=== PATIENT | male | born 1975 | race Caucasian/White ===

== ENCOUNTER 2020-09-12 07:59 | Day surgery (SDC) | payer BC ==
[2020-09-12] MEDS ORDERED: Propofol 200 MG/20 ML SDV IV ONE (08:00)
[2020-09-12] MEDS ORDERED: Midazolam 1 MG/ML 2 ML SDV IV ONE (08:00)
[2020-09-12] MEDS ORDERED: Sodium Chloride 0.9% 10 ML Syringe FLUSH PRN (08:00)
[2020-09-12] MEDS ORDERED: Lactated Ringers 1,000 ML IV SCH (08:00)
--- NOTE | 2020-09-12 09:48 | PCM.OPNOTE ---
- General Post-Op/Procedure Note Date of Surgery/Procedure: 09/12/20 Operative Procedure(s): c scope with biopsy cold forceps with intubation of terminal ileum. Findings: normal appearing terminal ileum normal appearing colon Pre Op Diagnosis: hx of diarrhea and rectal pain Post-Op Diagnosis: normal appearing terminal ileum. normal appearing colon Anesthesia Technique: MAC Primary Surgeon: Chris Stevens Anesthesia Provider: Trupti Tran Pathology: colon and terminal ileum. random biopsy Complications: None Condition: Good Free Text/Narrative:: see dictation #[id number]
--- NOTE | 2020-09-12 10:39 | OR ---
DATE OF OPERATION: 09/12/2020 SURGEON: Chris Stevens MD PROCEDURE PERFORMED: Colonoscopy with intubation of the terminal ileum with random cold forceps biopsies. PREOPERATIVE DIAGNOSIS: History of diarrhea which is a change in his bowel habits as well as rectal discomfort. POSTOPERATIVE DIAGNOSIS: Normal terminal ileum and normal colon. INDICATIONS FOR PROCEDURE: This is a 45-year-old white male who was referred with the complaints of some diarrhea which had been noted. In addition, he also noted some rectal discomfort. He was offered and accepted a colonoscopy. DESCRIPTION OF PROCEDURE: After an excellent IV sedation was administered, digital rectal exam was performed. No marked abnormality was noted. Prostate exam was unremarkable. Flexible colonoscope was inserted and advanced to the cecum. The terminal ileum was then successfully intubated and the scope was advanced approximately 5 cm. The following findings were noted: In the terminal ileum, no marked abnormality was noted, random biopsies were taken due to his complaint of diarrhea. Ascending colon and cecum were unremarkable, random biopsies taken. Transverse colon, unremarkable, random biopsies were taken. Descending colon, unremarkable, random biopsies were taken. Sigmoid and rectum, unremarkable, random biopsies were taken. The colon was deflated as the scope was removed. Patient tolerated the procedure well. Results will be sent to the patient via letter. /[id number] /MODL
== END 2020-09-12 10:40 | disposition home or self-care (01) ==
LOC: FB.SDS 07:59
PROVIDERS: ATTEND Surgery
DX: R19.4 Change in bowel habit (principal); Z98.890 Other specified postprocedural states
CPT/HCPCS: 00811; 45380; 88305; J2250; J2704; J7120; 00812-QZ

== ENCOUNTER 2024-06-20 17:12 | Emergency (ER) | payer BC ==
[2024-06-20] MEDS ORDERED: Lidocaine 1% 5 ML VIAL INFILT ONE (17:13)
[2024-06-20] MEDS: Bacitracin Oint 1 GM U/D Packet TOP ONE (17:40)
[2024-06-20] MEDS: Diphtheria/Tetanus Toxoids,Adult (Td) 0.5 ML SDV IM ONE (17:40)
== END 2024-06-20 18:00 | disposition home or self-care (01) ==
LOC: FB.ED 17:12
DX: S51.812A Laceration without foreign body of left forearm, initial encounter (principal); Z23 Encounter for immunization; E66.9 Obesity, unspecified; W26.8XXA Contact with other sharp object(s), not elsewhere classified, initial encounter
CPT/HCPCS: 12001; 90471; 90714; 99282-25; 99283